=== PATIENT | female | born 1990 | race Caucasian/White ===

== ENCOUNTER → 2021-10-28 | Outpatient (CLI) | payer OTHER, SELFPAY ==
[2021-10-28 11:02] LABS: Hematocrit 37.3 % (37-47); Hemoglobin 12.9 g/dL (12.0-15.0); Mean Corp Hgb Conc 34.6 g/dL (32-36); Mean Corpuscular Hgb 31.4 pg (27.0-32.0); Mean Corpuscular Volume 90.8 fL (81-99); Mean Platelet Vol. 9.7 fl (6.2-12.0); Platelet Count 227 K/mm3 (150-450); RBC Distribution Width CV 11.8 % (11.6-14.6); Red Blood Count 4.11 M/mm3 (4.2-5.4); White Blood Count 6.1 K/mm3 (4.4-11.0)
[2021-10-28 11:32] LABS: T4 Free Direct 1.06 ng/dL (0.76-1.46); Thyroid Stim Hormone (TSH) 0.83 uIU/mL (0.358-3.74)
[2021-10-28 11:33] LABS: Hemoglobin A1c 4.7 % (3.8-5.6)
[2021-10-28 12:17] LABS: HIV - WCH Non-Reactive (Nonreactive); Hepatitis B Surface Antigen Non-Reactive (Nonreactive); Hepatitis C Antibody Non-Reactive (Nonreactive); Syphilis Antibodies Non-reactive
[2021-10-29 21:08] LABS: Chlamydia By Nucleic Acid AMP Negative (Negative)
[2021-10-29 21:45] LABS: Gonococcus By Nucleic Acid AMP Negative (Negative)
[2021-11-01 11:35] LABS: HPV APTIMA, High Risk Negative (Negative)
== END | disposition home or self-care (01) ==
LOC: WOBLAB 10:39
PROVIDERS: Visit Provider Obstetrics & Gynecology
DX: N93.9 Abnormal uterine and vaginal bleeding, unspecified (principal); Z12.4 Encounter for screening for malignant neoplasm of cervix
CPT/HCPCS: 36415; 83036; 84439; 84443; 85027; 86703; 86780; 86803; 86900; 86901; 87340; 87491; 87591; 87624; 88175; G0145

== ENCOUNTER 2022-06-15 08:59 | Outpatient (CLI) | payer OTHER, SELFPAY ==
[2022-06-15 10:08] LABS: Progesterone Level 24.88 ng/mL (See Comment)
== END 2022-06-15 23:59 | disposition home or self-care (01) ==
LOC: WOBLAB 08:59
PROVIDERS: Visit Provider Obstetrics & Gynecology
DX: N97.8 Female infertility of other origin (principal)
CPT/HCPCS: 36415; 84144

== ENCOUNTER → 2022-08-21 | Outpatient (CLI) | payer OTHER, SELFPAY ==
[2022-08-21 10:29] LABS: Absolute Lymphocyte Count 1.32 X10^3/uL (0.83-4.51); Absolute Neutrophil Count 6.3 X10^3/uL (2.0-7.7); Basophil# 0.04 X10^3/uL; Basophil% 0.5 % (0-1); Eosinophil# 0.05 X10^3/uL; Eosinophils% 0.6 % (0-5); Hematocrit 36.4 % (37-47); Hemoglobin 12.8 g/dL (12.0-15.0); Lymphocyte # 1.32 X10^3/ul (0.83-4.51); Lymphocyte % 15.8 % (19-41); Mean Corp Hgb Conc 35.2 g/dL (32-36); Mean Corpuscular Hgb 32.2 pg (27.0-32.0); Mean Corpuscular Volume 91.5 fL (81-99); Mean Platelet Vol. 9.1 fl (6.2-12.0); Monocyte# 0.57 X10^3/uL; Monocyte% 6.8 % (0-10); NRBC Flagged by Analyzer 0 % (0-5); Neutrophil # 6.28 X10^3/uL (2.7-7.7); Neutrophil % 75.2 % (47-70); Platelet Count 255 K/mm3 (150-450); RBC Distribution Width CV 11.9 % (11.6-14.6); RBC Distribution Width SD 40.4 fl (35.1-43.9); Red Blood Count 3.98 M/mm3 (4.2-5.4); White Blood Count 8.4 K/mm3 (4.4-11.0)
[2022-08-21 12:08] LABS: HIV - WCH Non-Reactive (Nonreactive); Hepatitis B Surface Antigen Non-Reactive (Nonreactive); Hepatitis C Antibody Non-Reactive (Nonreactive); Rubella IgG Reactive (Nonreactive); Syphilis Antibodies Non-reactive
[2022-08-22 12:58] LABS: V-Zoster IgG (Immunity) 2237 index (Immune >165)
== END | disposition home or self-care (01) ==
LOC: WOBLAB 10:16
PROVIDERS: Visit Provider Obstetrics & Gynecology
DX: Z34.81 Encounter for supervision of other normal pregnancy, first trimester (principal); N91.2 Amenorrhea, unspecified
CPT/HCPCS: 36415; 85025; 86703; 86762; 86780; 86787; 86803; 87086; 87340

== ENCOUNTER → 2023-01-01 | Outpatient (CLI) | payer OTHER, SELFPAY ==
[2023-01-01 09:49] LABS: Hematocrit 31.3 % (37-47); Hemoglobin 10.5 g/dL (12.0-15.0); Mean Corp Hgb Conc 33.5 g/dL (32-36); Mean Corpuscular Volume 95.4 fL (81-99); Mean Platelet Vol. 9.8 fl (6.2-12.0); Platelet Count 237 K/mm3 (150-450); RBC Distribution Width CV 12.6 % (11.6-14.6); RBC Distribution Width SD 44.5 fl (35.1-43.9); Red Blood Count 3.28 M/mm3 (4.2-5.4); White Blood Count 11.8 K/mm3 (4.4-11.0)
[2023-01-01 09:55] LABS: Glucose Challenge Gest 1H 50g 73 mg/dL (70-140)
[2023-01-01 10:19] LABS: Syphilis Antibodies Non-reactive
== END | disposition home or self-care (01) ==
LOC: WOBLAB 09:14
PROVIDERS: Visit Provider Obstetrics & Gynecology
DX: Z34.82 Encounter for supervision of other normal pregnancy, second trimester (principal)
CPT/HCPCS: 36415; 82950; 85027; 86780

== ENCOUNTER 2023-03-30 11:15 | Inpatient (IN) | payer OTHER, SELFPAY ==
[2023-03-30] VITALS (28 sets, daily range): BP systolic 84–151; BP diastolic 47–88; PULSE 82–126; TEMP 36.5–37.4; O2SAT 84–100; BMI 24.5
[2023-03-30] MEDS: Lactated Ringers 1,000 ML 50 ML IV (12:15)
[2023-03-30] MEDS: Oxytocin 15 Units/NS 250ml 15 UNITS/250 ML IV.SOLN 2 UNITS IV (12:38)
[2023-03-30 12:40] LABS: Absolute Lymphocyte Count 1.38 X10^3/uL (0.83-4.51); Absolute Neutrophil Count 11.5 X10^3/uL (2.0-7.7); Basophil# 0.08 X10^3/uL; Basophil% 0.6 % (0-1); Eosinophil# 0.01 X10^3/uL; Eosinophils% 0.1 % (0-5); Hematocrit 35.3 % (37-47); Lymphocyte # 1.38 X10^3/ul (0.83-4.51); Lymphocyte % 9.8 % (19-41); Mean Corpuscular Hgb 30.5 pg (27.0-32.0); Mean Corpuscular Volume 89.6 fL (81-99); Mean Platelet Vol. 10.7 fl (6.2-12.0); Monocyte# 0.81 X10^3/uL; Monocyte% 5.8 % (0-10); NRBC Flagged by Analyzer 0 % (0-5); Neutrophil # 11.45 X10^3/uL (2.7-7.7); Neutrophil % 81.6 % (47-70); Platelet Count 272 K/mm3 (150-450); RBC Distribution Width CV 12.1 % (11.6-14.6); RBC Distribution Width SD 39.8 fl (35.1-43.9); Red Blood Count 3.94 M/mm3 (4.2-5.4)
[2023-03-30 13:09] LABS: Syphilis Antibodies Non-reactive
--- NOTE | 2023-03-30 17:04 | PCM.HP.OB ---
HPI - General General Date of Admission: 03/30/23 HPI Narrative DIANELYS PIPER, is a 32 F who presents with LOF. Maternal Data Information Final LOYD: 04[birth year]23 Gestational age: 39&5 PFSH PFSH Medical History Infertility Home Medications docosahexaenoic acid 200 mg capsule ( DHA) 200 mg PO DAILY 03/30/23 [History Last Taken 03/29/23] Allergy/AdvReac Type Severity Reaction Status Date / Time No Known Allergies Allergy Verified 03/30/23 11:55 Surgical History History of surgery Social History Smoking Status: Never smoker History Elective abortions Hx Para 0 Spontaneous abortions Hx # Term Pregnancies Ectopic pregnancies Hx # Pregnancies Multiple births # of living children NST FHR Rate Baby A Baseline: 140 Variability:: Moderate Accelerations:: 15 x 15 Decelerations:: None Uterine Activity:: irregular Vital Signs Vital Signs Vital Signs: 03/30/23 12:50 03/30/23 12:50 03/30/23 12:50 Temperature Temperature Source Pulse Rate 91 Blood Pressure 113/72 BP Systolic 113 BP Diastolic 72 Pulse Ox 97 03/30/23 12:50 03/30/23 12:50 03/30/23 12:50 Temperature 98.2 F Temperature Source Temporal Pulse Rate Blood Pressure BP Systolic BP Diastolic Pulse Ox 97 03/30/23 13:59 03/30/23 13:59 03/30/23 13:58 Temperature Temperature Source Temporal Pulse Rate 86 Blood Pressure 106/66 BP Systolic 106 BP Diastolic 66 Pulse Ox 03/30/23 13:59 03/30/23 13:59 03/30/23 13:58 Temperature 97.8 F Temperature Source Pulse Rate 89 Blood Pressure BP Systolic BP Diastolic Pulse Ox 99 03/30/23 15:28 03/30/23 15:28 03/30/23 15:28 Temperature Temperature Source Temporal Pulse Rate 93 Blood Pressure 139/83 H BP Systolic 139 BP Diastolic 83 Pulse Ox 03/30/23 15:28 03/30/23 15:28 03/30/23 16:37 Temperature 99.4 F H Temperature Source Pulse Rate Blood Pressure 151/88 H BP Systolic 151 BP Diastolic 88 Pulse Ox 99 03/30/23 16:37 03/30/23 16:38 03/30/23 16:38 Temperature Temperature Source Pulse Rate 88 96 Blood Pressure 130/76 H BP Systolic 130 BP Diastolic 76 Pulse Ox Weight Weight: 130 lb Body Mass Index (BMI) 24.5 Physical Exam GI soft to palpation, non-tender and non-distended Inspection: gravid Narrative: cvx - 1.5 Labs Labs Labs: Blood Type O POSITIVE Antibody Screen NEGATIVE Hct 35.3 % (37-47) L Hgb 12.0 g/dL (12.0-15.0) Syphilis Total Ab Non-reactive VZV IgG Antibody 2237 index (Immune >165) Rubella IgG Antibody Reactive (Nonreactive) Hep Bs Antigen Non-Reactive (Nonreactive) Hepatitis C Antibody Non-Reactive (Nonreactive) Chlamydia DNA (LJ) Negative (Negative) N.gonorrhoeae DNA (LJ) Negative (Negative) HIV 1&2 Antibody Non-Reactive (Nonreactive) Glucose 1 Hr 50 gm 73 mg/dL (70-140) Assessment & Plan (1) 39 weeks gestation of : COMMENT: @ 39&5 with SROM (2) SROM (spontaneous rupture of membranes): PLAN: Plan Admit to L&D Induction - on pitocin GBS negative EFW - less than 4500g, patient with adequate pelvis Pain - epidural as desired Routine care
[2023-03-30] MEDS: Ondansetron 4 MG/2 ML Vial IV (19:21)
[2023-03-30] MEDS: LACTATED RINGERS 500 ML 999 ML IV (21:37)
[2023-03-30] MEDS: proCHLORPERazine 10 MG/2 ML Vial IV (22:07)
[2023-03-30] MEDS: fentaNYL-bupivacaine (epidural) 100 ML BAG EPIDURAL (22:26)
[2023-03-31] VITALS (40 sets, daily range): BP systolic 71–136; BP diastolic 41–78; PULSE 69–129; RESP 16; TEMP 36.4–37.4; O2SAT 17–100
[2023-03-31] MEDS: Lactated Ringers 1,000 ML 200 ML IV (00:28)
[2023-03-31] MEDS: Ondansetron 4 MG/2 ML Vial IV (00:28)
[2023-03-31] MEDS: 0.9% Saline Lock 10 ML Syringe IV ×2 (00:30→09:32)
[2023-03-31] MEDS: LACTATED RINGERS 500 ML 999 ML IV ×3 (00:32→04:52)
[2023-03-31] MEDS: fentaNYL-bupivacaine (epidural) 100 ML BAG EPIDURAL (05:13)
[2023-03-31] MEDS: Oxytocin 15 Units/NS 250ml 15 UNITS/250 ML IV.SOLN 83 UNITS IV (06:29)
[2023-03-31] MEDS: Oxytocin 10 UNITS/ML Vial IM (06:30)
--- NOTE | 2023-03-31 06:56 | EX.PCM.OBRPT ---
Maternal Data Information Final LOYD: 04/[birth year]/23 Gestational age: 39&6 Vaginal Delivery Maternal Presentation Maternal Presentation: Spontaneous Rupture of Membranes Type of Induction: Pitocin Operative Information Date of Procedure: 03/31/23 Pre-Operative Diagnosis: SROM Post-Operative Diagnosis: SROM Surgery / Procedure Performed: Vacuum Assisted Vaginal Delivery Type of Anesthesia: Epidural Estimated Blood Loss: 350ml Findings Description of Procedure: Patient prepped & draped when C/C/+2. She was pushing well but was having deep variables with ctxs. Patient was verbally consented for a vacuum delivery. head position confirmed. Vacuum placed on head and position confirmed. With next contraction good descent noted with maternal push and gentle pull of vaccum. Vacuum released. This process was repeated 4 times until head delivered. 4 pulls of vacuum with no pop offs. head gently guided to allow delivery of anterior and posterior shoulders. No excess traction placed on head. Body delivered and 3VC clamped & cut in delayed fashion. Placenta delivered with gentle traction and good uterine tone obtained. Presentation: SUKHDEEP Amniotic Membrane Rupture Type: Spontaneous Amniotic Fluid Description: Clear Placental Delivery Description: Expressed Placenta Disposition: [facility] Specimen(s) Removed: Placenta Cord Vessel Description: 3 Vessels Cord Entanglement: Around neck x 1, loose Nuchal Cord Compression: Without compression Infant A Gender: Female (1 minute): 9 (5 minute): 9 Delayed Cord Clamping: Yes Post Vaginal Delivery Medications Given After Delivery: IV Pitocin Episiotomy Description: None Laceration: 2nd degree (repaired with 3-0 vicryl) Complication Complications: None
[2023-03-31] MEDS: Ibuprofen 600 MG Tablet PO ×3 (09:02→21:34)
--- NOTE | 2023-03-31 09:35 | NURSING ---
Bedside report given to Dwayne Wood RN who is assuming care of pt at this time
[2023-03-31] MEDS: Acetaminophen 500 MG Tablet 1000 MG PO (13:15)
[2023-03-31] MEDS: Benzocaine/Lanolin/Aloe Vera 1 SPRAY EACH TOPICAL (22:39)
[2023-04-01 00:08] VITALS: BP 99/63; PULSE 103; RESP 15; TEMP 36.5; O2SAT 96
[2023-04-01] MEDS: Ibuprofen 600 MG Tablet PO ×4 (03:32→23:16)
[2023-04-01 03:47] VITALS: BP 117/74; PULSE 98; RESP 15; TEMP 36.8; O2SAT 98
[2023-04-01 09:00] VITALS: BP 119/82; PULSE 105; RESP 16; TEMP 36.6
[2023-04-01] MEDS: Senna/Docusate Sodium 1 Tablet PO ×2 (09:15→09:25)
[2023-04-01] MEDS: Diphth,Pertuss(Acell),Tet Vac 0.5 ML Vial IM (09:31)
[2023-04-01 13:30] VITALS: BP 106/71; PULSE 99; RESP 16; TEMP 36.7
--- NOTE | 2023-04-01 16:24 | NURSING ---
pt states she is still having some incontinence, encouraged to empty bladder frequently and also to do [place] exercises.
[2023-04-01 17:00] VITALS: TEMP 36.7
[2023-04-01] MEDS: Acetaminophen 500 MG Tablet 1000 MG PO (18:08)
[2023-04-01 19:31] VITALS: BP 118/42; PULSE 98; RESP 16; TEMP 36.6; O2SAT 98
--- NOTE | 2023-04-01 21:00 | PCM.PN.OB ---
Subjective Subjective Patient seen at bedside. Feeling good. Denies any pain. Ambulating and voiding without difficulty. Lochia decreasing. Objective Data Objective Data Vital Signs: Vital Signs Temp Pulse Resp BP Pulse Ox O2 Del Method 97.9 F 98 16 118/42 L 98 Room Air 04/01/23 19:31 04/01/23 19:31 04/01/23 19:31 04/01/23 19:31 04/01/23 19:31 04/01/23 19:31 Oxygen Delivery Method Room Air Weight: 130 lb Body Mass Index (BMI) 24.5 Intake & Output: Intake and Output for Last 24 Hours 03/30/23 03/31/23 04/01/23 23:59 23:59 23:59 Intake Total 1078.89 / 1078.89 3162.76 / 3162.76 Output Total 400 / 400 1850 / 1850 Balance 678.89 / 678.89 1312.76 / 1312.76 Lab / Micro Data 03/30/23 12:15 ROS Eyes Eyes: Denies blurry vision, change in vision or spots in vision ENT HEENT: Denies dizziness or headache(s) Cardiovascular Cardiovascular: Denies abdominal pain, chest pain or dyspnea Respiratory/Chest Respiratory/Chest: Denies cough, dyspnea, shortness of breath at rest or shortness of breath with exertion Gastrointestinal Gastrointestinal: Denies abdominal pain, diarrhea or vomiting Genitourinary Genitourinary: Denies change in urinary stream, difficulty urinating or dysuria Musculoskeletal Musculoskeletal: Reports none Integumentary Integumentary: Denies rash Neurologic Neurologic: Denies dizziness, headache(s), memory loss or weakness Assessment & Plan (1) Vacuum-assisted vaginal delivery: (2) Laceration, obstetrical, second degree: (3) Care and examination of lactating mother: PLAN: Plan PPD 1 Routine care support Ambulating and voiding without difficulty Desires more support for and desires discharge home tomorrow
[2023-04-02 01:27] VITALS: BP 112/72; PULSE 93; RESP 15; TEMP 36.6; O2SAT 98
--- NOTE | 2023-04-02 07:44 | DS.PCM_ITS ---
Providers Date of Admission: 03/30/23 Reason For Visit: LABOR AND DELIVERY Diagnosis Discharge Diagnosis (1) Vacuum-assisted vaginal delivery: Status: Acute Code(s): Z37.9 - Outcome of delivery, unspecified (2) Laceration, obstetrical, second degree: Status: Acute Code(s): O70.1 - Second degree perineal laceration during delivery (3) Care and examination of lactating mother: Status: Acute Code(s): Z39.1 - Encounter for care and examination of lactating mother Plan PPD2 VAVD Pain control Medications at Discharge Home Medications docosahexaenoic acid 200 mg capsule ( DHA) 200 mg PO DAILY 03/30/23 Weight / BMI Weight Weight: 130 lb Body Mass Index (BMI) 24.5 ABG / Lab / Microbiology Data 03/30/23 12:15 Discharge Plan Admission Admit Date/Time: 03/30/23 11:15 Attending Provider: León Newby Discharge Orders/Prescriptions Prescriptions: No Action DHA 200 mg capsule 200 mg PO DAILY
--- NOTE | 2023-04-02 07:44 | PCM.DC.SUM ---
Providers Date of Admission: 03/30/23 Reason For Visit: LABOR AND DELIVERY Diagnosis Discharge Diagnosis (1) Vacuum-assisted vaginal delivery: Status: Acute Code(s): Z37.9 - Outcome of delivery, unspecified (2) Laceration, obstetrical, second degree: Status: Acute Code(s): O70.1 - Second degree perineal laceration during delivery (3) Care and examination of lactating mother: Status: Acute Code(s): Z39.1 - Encounter for care and examination of lactating mother Plan PPD2 VAVD Pain control support Desires discharge home today with follow up in office Medications at Discharge Home Medications docosahexaenoic acid 200 mg capsule ( DHA) 200 mg PO DAILY 03/30/23 Hospital Course Operations None Summary of Care Provided Minutes Spent on Discharge: 20 Hospital Course: Patient had VAVD. Hospital course was uneventful. Physical Exam Const alert and no apparent distress General Appearance: cooperative and comfortable Exam Limitations: no limitations HEENT normocephalic Eyes General Eye: normal appearance of both eyes Neck full ROM General: normal visual inspection Chest Chest: symmetrical chest wall rise Resp normal respiratory effort and normal air movement Effort and Inspection: symmetric chest movement Auscultation: clear to auscultation bilaterally Cardio regular rate and regular rhythm GI normal to inspection, nondistended, normoactive bowel sounds Back/Spine normal ROM Extremity full ROM and no calf tenderness General Extremity: normal exam except as noted Skin no rashes or lesions noted Neuro CN's II-XII intact bilaterally Psych mental status grossly normal Weight / BMI Weight Weight: 130 lb Body Mass Index (BMI) 24.5 ABG / Lab / Microbiology Data 03/30/23 12:15 D/C Instructions Discharge Diet: No restrictions Discharge Activity: Return to Normal Activity, May Shower and May Take a Tub Bath May resume sexual activity in: 4-6 weeks Weight Bearing Status: Weight bearing as tolerated Call your doctor if you observe: Fever of 101 or Higher, Inability to urinate, Using more than 1 pad per hour, Shortness of breath, Dizziness, Swelling in the ankles, Chest pain, Calf discomfort and Uncontrolled pain When: Within 10 days Meaningful Use Info Meaningful Use Diagnoses (Choose all that apply): None applicable Discharge Plan Admission Admit Date/Time: 03/30/23 11:15 Primary Reason for Your Visit: Labor and Delivery Attending Provider: León Newby Discharge Orders/Prescriptions Prescriptions: Continued DHA 200 mg capsule 200 mg PO DAILY Disposition Disposition (needs filled in before D/C Order can be placed): Home, Self Care
[2023-04-02 08:30] VITALS: BP 123/83; PULSE 89; RESP 16; TEMP 36.9; O2SAT 98
[2023-04-02 08:40] VITALS: PULSE 89
[2023-04-02 10:46] VITALS: BP 123/83; PULSE 89; RESP 18; TEMP 36.9; O2SAT 98
== END 2023-04-02 11:00 | disposition home or self-care (01) | DRG 807 ==
PROVIDERS: Admitting Provider Obstetrics & Gynecology; Referring Provider Obstetrics & Gynecology; Visit Provider Obstetrics & Gynecology
DX: O76 Abnormality in fetal heart rate and rhythm complicating labor and delivery (principal); Z37.0 Single live birth; O69.81X0 Labor and delivery complicated by cord around neck, without compression, not applicable or unspecified; O70.1 Second degree perineal laceration during delivery; Z3A.39 39 weeks gestation of pregnancy
CPT/HCPCS: 59025; 59050; 85025; 86780; 86850; 86900; 86901; 90715; 99221; J7120; A4216; G0378; J2405